=== PATIENT | male | born 1980 | race Caucasian/White ===

== ENCOUNTER 2016-12-17 08:36 | Emergency (ER) | payer OTHER ==
[~2016-12-17] VITALS: Ht 170.2 cm; Wt 85.0 kg
[~2016-12-17 08:36] MED LIST: POLY10O RIGHT EYE
[2016-12-17 08:38] VITALS: BP 150/79; PULSE 74; RESP 14; TEMP 98.4; O2SAT 98
--- NOTE | 2016-12-17 09:26 | PD ---
HPI Chief Complaint: Laceration/Skin Injury Time Seen by Provider: 09:25 Travel History International Travel<30 days: No Contact w/Intl Traveler<30days: No Traveled to known affect area: No History of Present Illness HPI 36-year-old male presents emergency Department with complaint of a cut to his left hand that occurred yesterday while turning a wrench hitting it up against a jet ski yesterday while at work. Denies paresthesias, loss of sensation, decreased range of motion vomiting or strength to the affected hand. Has cleaned the area and applied a bandage and pressure to control bleeding. Has not taken any medications to alleviate his symptoms. Denies pain. No known aggravating or relieving factors. Has no medical complaints. Symptoms are mild in severity. Unknown tetanus status. Allergies to penicillin. No other modifying factors or associated signs and symptoms. PFSH Past Medical History Autoimmune Disease: No Blood Disorders: No Cancer: No Cardiovascular Problems: No Chemotherapy: No Diabetes: No Diminished Hearing: No Endocrine: No Gastrointestinal Disorders: No Genitourinary: No Immune Disorder: No Musculoskeletal: No Neurologic: No Psychiatric: No Reproductive: No Respiratory: No Radiation Therapy: No Thyroid Disease: No ?: Not Past Surgical History Abdominal Surgery: No AICD: No Arteriovenous Shunt: No Cardiac Surgery: No Ear Surgery: No Endocrine Surgery: No Eye Surgery: No Genitourinary Surgery: No Gynecologic Surgery: No Insulin Pump: No Joint Replacement: No Neurologic Surgery: No Oral Surgery: No Pacemaker: No Thoracic Surgery: No Tonsillectomy: Yes Other Surgery: Yes (LEFT MID FINGER AND FACIAL SURG) Social History Alcohol Use: Yes (hx of abuse, sober 6 months) Tobacco Use: No Substance Use: No Allergies-Medications (Allergen,Severity, Reaction): Coded Allergies: penicillin G (Unverified Allergy, Severe, UNKNOWN, 12/17/16) Reported Meds & Prescriptions Reported Meds & Active Scripts Active Polytrim Opth (Polymyxin/Trimethoprim Sulfate) 10 Ml Soln 1 Drop RIGHT EYE Q4 5 Days Review of Systems Except as stated in HPI: all other systems reviewed are Neg Physical Exam Narrative GENERAL: Well-nourished, well-developed male patient, in no acute distress SKIN: Warm and dry. Approximately 1 cm superficial laceration to the ventral aspect of the second MCP joint; finger with full range of motion and sensory intact; without erythema, edema; bleeding controlled. HEAD: Atraumatic. Normocephalic. EYES: Pupils equal and round. No scleral icterus. No injection or drainage. ENT: Mucosa pink and moist. Airway patent. NECK: Trachea midline. CARDIOVASCULAR: Regular rate. RESPIRATORY: No accessory muscle use. GASTROINTESTINAL: Flat. MUSCULOSKELETAL: No obvious deformities. No clubbing. No cyanosis. No edema. NEUROLOGICAL: Awake and alert. Oriented 3. No obvious cranial nerve deficits. Motor grossly within normal limits. Normal speech. PSYCHIATRIC: Appropriate mood and affect; insight and judgment normal. Data Data Last Documented VS Vital Signs Date Time Temp Pulse Resp B/P (MAP) Pulse Ox O2 Delivery O2 Flow Rate FiO2 12/17/16 08:48 83 18 12/17/16 08:38 98.4 150/79 (102) 98 Room Air Orders Orders Tetanus/Diphtheria Tox Adult (Tetanus/Di (12/17/16 09:30) MDM Medical Decision Making Medical Screen Exam Complete: Yes Emergency Medical Condition: Yes Medical Record Reviewed: Yes Differential Diagnosis cut, Laceration, abrasion Narrative Course 36-year-old male with a cut of the left hand. Tetanus updated in the ER. Dermabond used to close the wound. See my procedure note for laceration repair. Instructed patient to follow up with primary care provider. Patient verbalizes understanding and agreement with treatment plan. Patient is medically cleared and stable for discharge. Discussed reasons to return to the emergency department. Patient agrees with treatment plan. The patients vital signs are stable and the patient is stable for outpatient follow-up and treatment. Patient discharged home, stable and in no acute distress. Procedures Procedure Narrative LACERATION LOCATION: Ventral aspect of left 2nd MCP joint LENGTH: 1 cm Dermabond was used to close the wound REPAIR: The area of the laceration was prepped with normal saline. The wound was copiously irrigated and explored without evidence of foreign body, tendon injury or neurovascular injury. The wound was closed using Dermabond. This was a single layer repair. A sterile dressing was applied. Patient tolerated the procedure well. Diagnosis Primary Impression: Cut of left hand Qualified Codes: S61.402A - Unspecified open wound of left hand, initial encounter Referrals: Primary Care Physician Patient Instructions: General Instructions, Laceration (ED) Departure Forms: Tests/Procedures, Work Release Enter return to work date: Dec 18, 2016 Additional Instructions: Keep area clean and dry Do not submerge hands in water while glue is in Place Follow-up with primary care provider Return to the emergency department immediately if worsening of symptoms Disposition: 01 DISCHARGE HOME Condition: Stable Sada Mendoza Dec 17, 2016 09:26
[2016-12-17] MEDS ORDERED: TETANUS/DIPHTHERIA TOXOID ADULT 0.5 ML VIAL IM ONE (09:30)
== END 2016-12-17 09:50 | disposition home or self-care (01) ==
LOC: NEPD 08:36
DX: S61.412A Laceration without foreign body of left hand, initial encounter (principal); W22.8XXA Striking against or struck by other objects, initial encounter; Y93.89 Activity, other specified; Z23 Encounter for immunization
CPT/HCPCS: 12001; 90471; 90714